=== PATIENT | female | born 1980 | race Caucasian/White ===

== ENCOUNTER 2016-09-12 20:15 | Emergency (ER) | payer MEDICAID ==
[~2016-09-12] VITALS: Ht 157.5 cm; Wt 81.6 kg
[2016-09-12 20:15] VITALS: BP_SYST 113
--- NOTE | 2016-09-12 20:15 | NUR ---
PT IN WAITING ROOM AWAITING AVAILABLE BED. STABLE.
--- NOTE | 2016-09-12 21:10 | NUR ---
Moira zev in EDM - 09/12/16 at 2249 by [email or web address] Pt brought by Mignon [email or web address] ,ambulatory, cap refill <3, VS WNL, pt presents to ER with abscess to back of right thigh x 2 months ,skin pink and warm, afebrile
--- NOTE | 2016-09-12 21:14 | NUR ---
Patient to ER bed 8 to gown for evaluation. Side rails up. Report given to OMA SIM.
[2016-09-12] MEDS ORDERED: DIPH-TET-PERTUS Vaccine 0.5 ML VIAL (ADACEL) IM ONE (21:15)
[2016-09-12] MEDS ORDERED: LIDOCAINE/EPI 2% 1:100000 20 ML VIAL IJ ONE (21:15)
[2016-09-12] MEDS ORDERED: LIDOCAINE 4% TOPICAL 50 ML BOTTLE MM ONE (21:15)
--- NOTE | 2016-09-12 21:15 | NUR ---
Lisandra Oconnor SENIOR STORAGE ADMINISTRATOR at bedside examining patient
[2016-09-12] MEDS ORDERED: HYDROcodone/ACETAMIN 7.5-325 MG TAB PO ONE (21:30)
--- NOTE | 2016-09-12 21:30 | NUR ---
Pt brought by , A&Ox4 ,ambulatory, cap refill <3, VS WNL, pt presents to ER with abscess to back of right thigh x 2 months ,skin pink and warm, afebrile
[2016-09-12 22:20] VITALS: BP_SYST 113
--- NOTE | 2016-09-12 22:22 | NUR ---
Patient given written and verbal discharge instructions and verbalizes understanding. ER MD discussed with patient the results and treatment provided. Patient in stable condition. ID arm band removed. Rx of Motrin,Bactrim and Keflex given. Patient educated on pain management and to follow up with PMD. Pain Scale 0/10. Opportunity for questions provided and answered.
== END 2016-09-12 22:20 | disposition home or self-care (01) ==
LOC: SED 20:15
DX: L02.415 Cutaneous abscess of right lower limb (principal); Z98.51 Tubal ligation status
CPT/HCPCS: 90715; 99283